=== PATIENT | female | born 1985 | race Caucasian/White ===

== ENCOUNTER 2016-12-30 13:25 | Inpatient (IN) | payer BC ==
[~2016-12-30] VITALS: Ht 170.2 cm; Wt 123.8 kg
--- NOTE | ~2016-12-30 | FD ---
ADMIT: 12/30/2016 RM/LOC: 202 [facility] MR#: [id number] [address] [address] LINDA BRYANT [address] [address] Final Diagnosis SEX: F AGE: 31 : 1985 ADMISSION DATE: 12/30/2016 DISCHARGE DATE: 01/01/2017 FINAL DIAGNOSIS: 1. A 31-year-old 1 para 1-0-0-1, status post spontaneous vaginal delivery at 37 weeks 6 days estimated gestational age. 2. History of thyroid cancer, status post thyroidectomy. PROCEDURE: 1. Spontaneous vaginal delivery with delivery of viable male, 7 pounds 2 ounces, Apgars 8 and 9. 2. Epidural catheter placement and removal. Tala Ryder MD Resident / Ilene Meier MD / shira JOB #: [id number] CC: Ilene Meier MD, Attending Physician Rachelle Garcia, Family Physician
--- NOTE | ~2016-12-30 | HP ---
ADMIT: 12/30/2016 RM/LOC: 202 [facility] MR#: [id number] [address] LINDA BRYANT [address] [address] History and Physical SEX: F AGE: 31 : 1985 DATE OF SERVICE: CHIEF COMPLAINT: Leaking of fluid. HISTORY OF PRESENT ILLNESS: This is a 31-year-old, G1, P0, with an intrauterine at 37 weeks and 6 days via 1st trimester ultrasound, who presents with chief complaint of leaking fluid. The patient reports 2 large gushes of fluid, which was clear in character. She reports the first gush of fluid was at 1310 hours today. She denies vaginal bleeding. She has had irregular contractions, which have increased in intensity throughout the day. She reports normal movement. Her has been complicated by history of thyroid cancer for which she had her thyroid resected in 2015. She has followed with the Maternal- Medicine team with normal growth scans. also complicated by GERD, obesity, and excessive weight gain in . PAST MEDICAL HISTORY: History of thyroid cancer status post resection, obesity, and GERD. PAST SURGICAL HISTORY: She had a total thyroidectomy in January of 2016. Surgical complicated by need for a feeding tube and trach. These were removed in February of 2016. MEDICATIONS: 1. vitamin. 2. Prilosec. 3. Loratadine. 4. Synthroid. 5. She is currently taking 150 mcg of Synthroid. ALLERGIES: SULFA AND SINGULAIR. SOCIAL HISTORY: She is to [place]. She denies tobacco use, alcohol use, or recreational drug use. FAMILY HISTORY: She has multiple relatives with thyroid disease including 4 maternal aunts. REVIEW OF SYSTEMS: She denies headache, changes of vision, chest pain, or shortness of breath. She denies nausea, vomiting, diarrhea, or constipation. She endorses swelling in bilateral lower extremities for approximately 1 month. PHYSICAL EXAMINATION: VITAL SIGNS: Blood pressure 127/79, pulse 85, respiratory rate 16, she is afebrile, and saturating 99% on room air. GENERAL: She is alert, oriented, in no acute distress. HEART: Regular rate and rhythm. LUNGS: Clear to auscultation bilaterally. ABDOMEN: Gravid and nontender. Estimated weight is 3200. ADMIT: 12/30/2016 RM/LOC: 202 [facility] MR#: [id number] [address] LINDA BRYANT [address] [place] [address] History and Physical SEX: F AGE: 31 : 1985 EXTREMITIES: She has 1+ edema in bilateral lower extremities. Distal pulses 2+. heart rate baseline appears to be 130. Positive accelerations. No decelerations. Moderate variability. Contractions q.4 to 5 minutes on monitor. These are palpating mild to moderate. Sterile vaginal exam per nursing staff is 3, 80, and -2 upon admission. LABORATORIES: Blood type is AB positive with direct antibody testing negative. GBS negative. Hemoglobin 11.8 and platelets 241. One-hour glucose tolerance test was 77. RPR negative. Hepatitis B negative. HIV negative. Gonorrhea and chlamydia negative. Rubella immune. TSH values not available upon admission as these are performed at an outside laboratory. ASSESSMENT AND PLAN: This is a 31-year-old, G1, P0, with an intrauterine at 37 weeks and 6 days via first trimester ultrasound, who presents to the [facility] with complaint of spontaneous rupture of membranes. The patient found to have gross rupture of membranes upon presentation. 1. Admit to the [facility] for labor management. Consent for vaginal delivery, assistive vaginal delivery, or section was obtained. The patient's blood type is AB positive. In the event that she should need a transfusion, she does agree to this. Recommend ambulation upon admission and recheck of cervix in 1 to 2 hours. The cervical exam was unchanged. Could consider Pitocin augmentation. 2. heart tones are reassuring category 1. We will continue to monitor throughout the labor process. 3. Maternal well being. Pain is well controlled currently. We will reassess need for pain medication or epidural later in the labor course. 4. Thyroid disease with history of thyroidectomy. Recommend TSH following delivery with results faxed to counseling center director, Dr. Kavita Ascencio. MFM reported normal growth during this . She continues on Synthroid 150 mcg daily. 5. GBS negative. We will not treat with antibiotics at this time. We will assess for signs and symptoms of infection throughout the labor course. The patient was seen and discussed with attending physician, Dr. Ilene Meier on day of admission. Tala Ryder MD Resident / Ilene Meier MD / steffi JOB #: [id number] CC: Ilene Meier, Attending Physician Rachelle Garcia MD, Family Physician
[2017-01-02] MEDS ORDERED: PRENATAL VIT1 TAB PO (10:45)
[2017-01-02] MEDS ORDERED: PRILOSEC DPS20 MG PO (10:45)
[2017-01-02] MEDS ORDERED: COLACE-DPS100 MG PO (10:46)
[2017-01-02] MEDS ORDERED: MOTRIN-DPS800 MG PO (10:46)
[2017-01-02] MEDS ORDERED: SYNTHROID DPS0.15 MG PO (10:46)
[2017-01-02] MEDS ORDERED: NIPPLECREAM TP (10:46)
[2017-01-02] MEDS ORDERED: CLARITIN DPS10 MG PO (10:46)
--- NOTE | 2017-01-25 13:40 | OR ---
ADMIT: 12/30/2016 RM/LOC: 202 [facility] MR#: [id number] [address] LINDA BRYANT [address] [place] [address] Operative/Delivery Room Report SEX: F AGE: 31 : 1985 SURGERY DATE: 12/30/2016 SURGEON: Ilene Meier MD PROCEDURE: Spontaneous vaginal delivery. PRE-PROCEDURE DIAGNOSES: 1. A 31-year-old 1 para 0, with an intrauterine at 37 weeks 6 days via first trimester ultrasound. 2. History of thyroid cancer, status post thyroidectomy. 3. Acid reflux. 4. Obesity. POSTOPERATIVE DIAGNOSES: 1. A 31-year-old 1 para 1-0-0-1, status post spontaneous vaginal delivery at 37 weeks 6 days' estimated gestational age. 2. Spontaneous vaginal delivery. 3. First-degree perineal laceration, status post repair. 4. Right periurethral laceration, status post repair. 5. History of thyroid cancer, status post thyroidectomy. 6. Acid reflux. 7. Obesity. DELIVERY INFORMATION: Date of delivery: 12/30/2016. Delivery time: 2115 hours. Delivery sex: Male. Weight: 3240 g. scores: 8 and 9. LUCA presentation. FINDINGS: Viable male infant in the LUCA presentation with a weight of 3240 g, scores of 8 and 9. Normal placenta with three-vessel cord. ESTIMATED BLOOD LOSS: 300 mL. ANESTHESIA: Epidural. HOSPITAL COURSE AND PROCEDURE: This is a 31-year-old , with an intrauterine at 37 weeks 6 days via first trimester ultrasound, who presented to Labor and Delivery with complaint of leaking of fluid. The patient was found to be ruptured. SROM occurred at approximately 1310 hours on 12/30/2016. She was admitted. Pitocin augmentation was performed. Epidural was placed for anesthesia. The patient ultimately progressed to complete with Pitocin augmentation. The patient was complete and expulsive efforts were begun. The head was brought to the perineum and delivered over an intact perineum. The head restituted to the right. The anterior and posterior shoulder delivered without difficulties. Nuchal cord was present and was reduced. The was vigorous and crying, and was placed on the mother's abdomen. Tactile stimulation was performed. Bulb suction was not performed. After a minute of delayed cord clamping, the cord was clamped and ADMIT: 12/30/2016 RM/LOC: 202 [facility] MR#: [id number] [address] [address] WHITELINDA MURRAY [address] [place] [address] Operative/Delivery Room Report SEX: F AGE: 31 : 1985 cut. Cord blood was collected. Cord gas was not collected. The placenta delivered spontaneously with a three-vessel cord. Partial cord avulsion was present at the time of placental delivery. Pitocin was administered per protocol. The vagina and perineum were inspected for lacerations. The patient was noted to have a right periurethral laceration which was repaired with 3-0 Vicryl in a running locked fashion. The patient was also found to have a first-degree perineal laceration, which was repaired with a running locked 3-0 Vicryl suture. All tissues were found to be hemostatic. Counts were correct x2. Mother and are stable in mother's room. The patient tolerated procedure well. Dr. Meier was present for the entire procedure. At the conclusion of the procedure, the epidural catheter was removed with the tip intact. Tala Ryder MD Resident / Ilene Meier MD / modl JOB #: [id number] CC: Ilene Meier, Attending Physician Rachelle Garcia MD, Family Physician
== END 2017-01-01 12:40 | disposition home or self-care (01) | DRG 775 ==
LOC: 2LDRP 13:25 → BC 13:25 → 2LDRP 14:20 → BC 01-14 08:00
PROVIDERS: ADMIT Obstetrics & Gynecology
PROC: 0UQMXZZ Repair Vulva, External Approach (ICD-10-PCS; principal; 2016-12-30)
PROC: 10E0XZZ Delivery of Products of Conception, External Approach (ICD-10-PCS; principal; 2016-12-30)
PROC: 0HQ9XZZ Repair Perineum Skin, External Approach (ICD-10-PCS; principal; 2016-12-30)
DX: O99.214 Obesity complicating childbirth (principal); E66.9 Obesity, unspecified; E89.0 Postprocedural hypothyroidism; O99.62 Diseases of the digestive system complicating childbirth; K21.9 Gastro-esophageal reflux disease without esophagitis; O75.89 Other specified complications of labor and delivery; O70.0 First degree perineal laceration during delivery; Z85.850 Personal history of malignant neoplasm of thyroid; O71.82 Other specified trauma to perineum and vulva; Z3A.37 37 weeks gestation of pregnancy; Z37.0 Single live birth; Z68.33 Body mass index [BMI] 33.0-33.9, adult